=== PATIENT | male | born 1945 | race Caucasian/White ===

== ENCOUNTER → 2017-05-30 | Outpatient (CLI) | payer MEDICARE ==
--- NOTE | 2017-05-30 20:26 | REP ---
RIGHT SHOULDER, COMPLETE: 05/30/2017. Clinical history: Anterior-superior shoulder injury, pain. Findings: No prior study. AC joint spurring inferiorly and superiorly. There is no elevation of the clavicle in relationship to the acromion. There are glenohumeral joint degenerative changes seen as well but good range of motion with internal and external rotation. No abnormal soft tissue calcifications. There is no fracture or focal lesion. Impression: 1. AC and glenohumeral joint arthritis, no fracture, subluxation, abnormal soft-tissue calcification or other acute finding. Signed by Mirza Hare MD 05/30/2017 08:33 P
== END ==
LOC: M WUC 18:39
PROVIDERS: ATTEND Physician Assistant
DX: M19.011 Primary osteoarthritis, right shoulder (principal); S40.011A Contusion of right shoulder, initial encounter; X58.XXXA Exposure to other specified factors, initial encounter; Y92.89 Other specified places as the place of occurrence of the external cause; Y93.89 Activity, other specified; Y99.8 Other external cause status